=== PATIENT | female | born 1970 | race Caucasian/White ===

== ENCOUNTER 2017-10-31 00:12 | Emergency (ER) | payer SELFPAY ==
[2017-10-31 00:54] LABS: BASO # 0.1 x10^3/uL (0.0-0.2); BASO % 1 % (0-3); EOS # 0.2 x10^3/uL (0.0-0.7); EOS % 3 % (0-3); HEMATOCRIT 44.5 % (36.0-47.0); HEMOGLOBIN 15.6 g/dL (12.0-15.5); LYMPH # 5.7 x10^3/uL (1.0-4.8); LYMPH % 59 % (24-48); MEAN CORPUSCULAR HEMOGLOBIN 35 pg (25-35); MEAN CORPUSCULAR HGB CONC 35 g/dL (31-37); MEAN CORPUSCULAR VOLUME 99 fL (79-100); MONO # 0.6 x10^3/uL (0.0-1.1); MONO % 6 % (0-9); NEUT # 3.1 x10^3uL (1.8-7.7); NEUT % 32 % (31-73); PLATELET COUNT 347 x10^3/uL (140-400); RED BLOOD COUNT 4.51 x10^6/uL (3.50-5.40); RED CELL DISTRIBUTION WIDTH 13.5 % (11.5-14.5); WHITE BLOOD COUNT 9.7 x10^3/uL (4.0-11.0)
[2017-10-31] MEDS: IV NORMAL SALINE 1000ML BAG 1,000 ML IV (00:54)
[2017-10-31 00:55] LABS: ADD MAN DIFF? YES
[2017-10-31] MEDS: ONDANSETRON ODT 4 MG TAB.RAPDIS. PO (00:56)
[2017-10-31 01:01] LABS: ANION GAP 14 (6-14); BLOOD UREA NITROGEN 14 mg/dL (7-20); CARBON DIOXIDE 28 mmol/L (21-32); CHLORIDE 103 mmol/L (98-107); CREATININE 0.7 mg/dL (0.6-1.0); GFR 89.7; GLUCOSE 102 mg/dL (70-99); POTASSIUM 3.9 mmol/L (3.5-5.1); SODIUM 145 mmol/L (136-145)
[2017-10-31 01:08] LABS: ETHANOL 280 mg/dL (0-10)
[2017-10-31 03:37] LABS: % ATYL 11 % (0-0); % EOS 10 % (0-5); % LYMPHS 55 % (24-48); % MONOS 4 % (0-10); % SEGS 20 % (35-66); PLT ESTIMATE ADEQUATE (ADEQUATE)
== END 2017-10-31 02:01 | disposition home or self-care (01) ==
LOC: ER 00:12
DX: F10.229 Alcohol dependence with intoxication, unspecified (principal); F41.9 Anxiety disorder, unspecified; F12.10 Cannabis abuse, uncomplicated; F17.210 Nicotine dependence, cigarettes, uncomplicated
CPT/HCPCS: 36415; 80048; 85007; 85025; 96360; 99284-25; G0480; J7030; Q0162